=== PATIENT | male | born 1990 | race Caucasian/White ===

== ENCOUNTER 2020-02-16 21:09 | Emergency (ER) | payer OTHER ==
[~2020-02-16 21:09] MED LIST: ATARAX25 MG PO; PREDNISONE 20MG20 MG PO
[2020-02-16 22:53] LABS: BASOPHIL 0.4 % (0-2); EOSINOPHIL 1.1 % (0-5); HCT 48.5 % (42.0-52.0); HGB 16.4 g/dl (13.2-18.0); LYMPHOCYTE 22.9 % (15-48); MCH 30.9 pg (25.0-31.0); MCHC 33.8 g/dL (32.0-36.0); MCV 91.5 fL (78.0-100.0); MONOCYTE 6.5 % (0-12); MPV 10.2 fL (6.0-9.5); NEUTROPHIL 68.7 % (41-80); NRBC 0; PLT 334 K/uL (150-400); RDW 13.1 % (11.5-14.0); WBC 7.4 K/uL (4.0-10.5)
[2020-02-16 23:02] LABS: ALBUMIN 3.9 g/dL (3.4-5.0); BILIRUBIN - TOTAL 0.3 mg/dL (0.2-1.0); BUN/CREAT RATIO (CALC) 7.3 RATIO; CREATININE 0.96 mg/dL (0.67-1.17); GLOBULIN (CALCULATION) 4.2 g/dL; POTASSIUM 3.8 mmol/L (3.5-5.1); TOTAL PROTEIN 8.1 g/dL (6.4-8.2)
== END 2020-02-17 01:01 | disposition home or self-care (01) ==
LOC: FER 21:09
PROVIDERS: Emergency Medicine
DX: R07.9 Chest pain, unspecified (principal); R79.89 Other specified abnormal findings of blood chemistry; R11.0 Nausea; R05 Cough; I10 Essential (primary) hypertension; F17.210 Nicotine dependence, cigarettes, uncomplicated; Z79.899 Other long term (current) drug therapy; Z87.19 Personal history of other diseases of the digestive system
CPT/HCPCS: 36415; 71045; 80053; 84484; 85025; 85379; 93005

== ENCOUNTER → 2021-01-13 | Day surgery (SDC) | payer OTHER ==
[~2021-01-13] VITALS: Ht 188 cm; Wt 154.3 kg
[~2021-01-13] MED LIST changes: +ACETAMINOPHEN500 M1 PO; +COLACE100 MG PO; +COZAAR100 MG PO; +MOTRIN600 MG PO; +OXY-IR 5MG5 MG PO
[2021-01-13 08:53] LABS: ALBUMIN 3.2 g/dL (3.4-5.0); BILIRUBIN - TOTAL 0.2 mg/dL (0.2-1.0); BUN/CREAT RATIO (CALC) 16.9 RATIO; CREATININE 0.71 mg/dL (0.67-1.17); GLOBULIN (CALCULATION) 4.3 g/dL; POTASSIUM 4.2 mmol/L (3.5-5.1); TOTAL PROTEIN 7.5 g/dL (6.4-8.2)
== END | disposition home or self-care (01) ==
LOC: FAS 07:42
PROVIDERS: Student in an Organized Health Care Education/Training Program
DX: K81.1 Chronic cholecystitis (principal); K82.8 Other specified diseases of gallbladder; R94.5 Abnormal results of liver function studies; K76.0 Fatty (change of) liver, not elsewhere classified; I10 Essential (primary) hypertension; E66.9 Obesity, unspecified; F17.200 Nicotine dependence, unspecified, uncomplicated; Z72.89 Other problems related to lifestyle
CPT/HCPCS: 36415; 80053; 82150; 83690; 93005; C1758; J1100; J1170; J1644; J2250; J2405; J2704; J2710; J3010; J7120; Q9967

== ENCOUNTER 2021-09-09 17:41 | Emergency (ER) | payer OTHER ==
[2021-09-09 18:31] LABS: BASOPHIL 0.4 % (0-2); EOSINOPHIL 1.5 % (0-5); LYMPHOCYTE 25.2 % (15-48); MCH 31.1 pg (25.0-31.0); MCHC 34.1 g/dL (32.0-36.0); MCV 91.1 fL (78.0-100.0); MONOCYTE 6.8 % (0-12); MPV 9.8 fL (6.0-9.5); NEUTROPHIL 65.7 % (41-80); NRBC 0; PLT 332 K/uL (150-400); RBC 4.83 M/uL (4.70-6.00); RDW 13.3 % (11.5-14.0); WBC 11.2 K/uL (4.0-10.5)
[2021-09-09 18:46] LABS: ALBUMIN 3.5 g/dL (3.4-5.0); BILIRUBIN - TOTAL 0.5 mg/dL (0.2-1.0); BUN/CREAT RATIO (CALC) 11.5 RATIO; CREATININE 0.96 mg/dL (0.67-1.17); GLOBULIN (CALCULATION) 4.6 g/dL; POTASSIUM 3.5 mmol/L (3.5-5.1); TOTAL PROTEIN 8.1 g/dL (6.4-8.2)
[2021-09-09] MEDS ORDERED: NAPROXEN500 MG PO (19:09)
== END 2021-09-09 19:20 | disposition home or self-care (01) ==
LOC: FER 17:41
PROVIDERS: Emergency Medicine
DX: R09.1 Pleurisy (principal); I10 Essential (primary) hypertension; Z20.822 Contact with and (suspected) exposure to COVID-19
CPT/HCPCS: 36415; 71046; 80053; 82553; 84484; 85025; 85379; 93005; U0002